=== PATIENT | female | born 1990 | race African-American/Black ===

== ENCOUNTER → 2019-06-09 08:00 | Outpatient (CLI) | payer BC, SELFPAY ==
[2019-06-09 08:21] LABS: Basophils % 0.2 % (0.1-2.0); Eosinophils # 0.1 K/mm3 (0.0-0.4); Eosinophils % 0.9 % (0.1-12.0); Hematocrit 43.1 % (37.0-47.0); Hemoglobin 13.1 g/dL (12.2-16.2); Lymphocytes # 1.9 K/mm3 (0.7-4.5); Lymphocytes % 22.3 % (10-50); Mean Corpuscular HGB Conc 30.4 g/dL (31.8-35.4); Mean Corpuscular Volume 89.1 fl (81-99); Mean Platelet Volume 9.1 fl (7.4-10.4); Monocytes # 0.3 K/mm3 (0.1-1.0); Monocytes % 3.6 % (1.7-9.3); Neutrophils # 6.1 K/mm3 (1.8-7.8); Neutrophils % 72.9 % (37.0-80.0); Platelet Count 270 K/mm3 (142-424); Red Blood Count 4.83 M/mm3 (4.20-5.40); Red Cell Distribution Width 13.1 % (11.5-17.5); White Blood Count 8.4 K/mm3 (4.8-10.8)
[2019-06-09 09:02] LABS: Erythrocyte Sedimentation Rate 9 mm/hr (0-20)
[2019-06-09 09:27] LABS: Alanine Aminotransferase 20 U/L (12-78); Albumin Level 4.1 gm/dL (3.4-5.0); Albumin/Globulin Ratio 1.1 (1.1-1.8); Alkaline Phosphatase 89 U/L (46-116); Anion Gap 14.1 mEq/L (5-15); Aspartate Amino Transferase 10 U/L (15-37); Bilirubin,Total 0.5 mg/dL (0.2-1.0); Blood Urea Nitrogen 11 mg/dL (7-18); Calcium 9.4 mg/dL (8.5-10.1); Carbon Dioxide 27 mmol/L (21.0-32.0); Chloride 102 mmol/L (98-107); Creatinine,Serum 0.73 mg/dL (0.55-1.02); Estimated Glomerular Filt Rate 94 ml/min (>60); GFR (African American) 113 ML/MIN (>60); Globulin 3.7 gm/dl (1.3-3.2); Glucose 92 mg/dL (74-106); Potassium 4.1 mmoL/L (3.5-5.1); Sodium 139 mmol/L (136-145); T4 (Thyroxine) 12.5 ug/dl (4.7-13.3); Thyroid Stimulating Hormone 1.02 uIU/ml (0.358-3.740); Total Protein,Serum 7.8 gm/dL (6.4-8.2)
[2019-06-09 09:31] LABS: C-Reactive Protein < 0.2 mg/dL (0.0-0.9)
[2019-06-10 18:16] LABS: Vitamin B12 512 pg/mL (232-1245)
[2019-06-10 18:17] LABS: Vitamin D 25 Hydroxy 39.3 ng/mL (30.0-100.0)
[2019-06-23 09:18] LABS: Anti-Cardiolipin Antibody IgG <10 GPL (.); Anti-Cardiolipin Antibody IgM <10 MPL (.); Beta-2 Glycoprotein I Ab, IgA <10 SAU (.); Beta-2 Glycoprotein I Ab, IgG <10 SGU (.); Beta-2 Glycoprotein I Ab, IgM <10 SMU (.); Hexagonal Phase Phospholipid 8 sec (.); Thrombin Time 18.5 sec (.)
== END ==
PROVIDERS: Visit Provider Nurse Practitioner Family
DX: R22.30 Localized swelling, mass and lump, unspecified upper limb (principal); R51 Headache; R53.83 Other fatigue
CPT/HCPCS: 36415; 80053; 82607; 82652; 84436; 84443; 85025; 85597; 85598; 85610; 85613; 85651; 85670; 85730; 86140; 86146; 86147

== ENCOUNTER → 2019-08-24 14:49 | Outpatient (CLI) | payer BC, SELFPAY ==
[2019-08-24 15:30] LABS: Erythrocyte Sedimentation Rate 63 mm/hr (0-20)
[2019-08-24 15:32] LABS: Basophils % 0.2 % (0.1-2.0); Eosinophils # 0.2 K/mm3 (0.0-0.4); Eosinophils % 1.5 % (0.1-12.0); Hematocrit 36.3 % (37.0-47.0); Lymphocytes # 2.1 K/mm3 (0.7-4.5); Lymphocytes % 13.5 % (10-50); Mean Corpuscular HGB Conc 30.3 g/dL (31.8-35.4); Mean Corpuscular Hemoglobin 26.8 pg (27.0-31.2); Mean Corpuscular Volume 88.4 fl (81-99); Mean Platelet Volume 9.4 fl (7.4-10.4); Monocytes # 0.7 K/mm3 (0.1-1.0); Monocytes % 4.3 % (1.7-9.3); Neutrophils # 12.3 K/mm3 (1.8-7.8); Neutrophils % 80.5 % (37.0-80.0); Platelet Count 181 K/mm3 (142-424); Red Blood Count 4.11 M/mm3 (4.20-5.40); Red Cell Distribution Width 15.7 % (11.5-17.5); White Blood Count 15.2 K/mm3 (4.8-10.8)
[2019-08-24 15:40] LABS: MANUAL DIFFERENTIAL MANUAL DIFFERENTIAL (MANUAL DIFF)
[2019-08-24 16:20] LABS: Eosinophils % 3 % (0-3); Lymphocytes % 16 % (10-50); Monocytes % 5 % (2-9); Neutrophils % 76 % (42-76); Platelet Estimate Normal; RBC Morphology Normal; Total Cells Counted 100
[2019-08-24 18:54] LABS: Alanine Aminotransferase 24 U/L (12-78); Albumin/Globulin Ratio 1.1 (1.1-1.8); Alkaline Phosphatase 102 U/L (46-116); Anion Gap 16.8 mEq/L (5-15); Aspartate Amino Transferase 16 U/L (15-37); Bilirubin,Total 0.3 mg/dL (0.2-1.0); Blood Urea Nitrogen 12 mg/dL (7-18); Calcium 8.8 mg/dL (8.5-10.1); Carbon Dioxide 25 mmol/L (21.0-32.0); Chloride 102 mmol/L (98-107); Creatinine,Serum 0.76 mg/dL (0.55-1.02); Estimated Glomerular Filt Rate 89 ml/min (>60); GFR (African American) 108 ML/MIN (>60); Globulin 3.6 gm/dl (1.3-3.2); Glucose 78 mg/dL (74-106); Potassium 3.8 mmoL/L (3.5-5.1); Sodium 140 mmol/L (136-145); Total Protein,Serum 7.6 gm/dL (6.4-8.2)
[2019-08-26 09:46] LABS: HIV Screen 4th Generation wRfx Non Reactive (Non Reactive)
[2019-08-26 12:08] LABS: Anti-Centromere B Antibodies <0.2 AI (0.0-0.9); Anti-Jo-1 <0.2 AI (0.0-0.9); Anti-Smith Antibody <0.2 AI (0.0-0.9); Antichromatin Antibodies <0.2 AI (0.0-0.9); Antiscleroderma-70 Antibodies <0.2 AI (0.0-0.9); RNP Antibodies 0.9 AI (0.0-0.9); Sjogren's Anti-SS-A <0.2 AI (0.0-0.9); Sjogren's Anti-SS-B <0.2 AI (0.0-0.9)
[2019-08-26 13:31] LABS: Anti-DNA (DS) Ab Qn 2 IU/mL (0-9)
[2019-08-26 14:50] LABS: Peripheral Smear Review Scanned Result
[2019-08-26 18:13] LABS: EBV Ab VCA, IgM <36.0 U/mL (0.0-35.9)
== END ==
PROVIDERS: Visit Provider Physician Assistant
DX: R53.83 Other fatigue (principal); R59.1 Generalized enlarged lymph nodes; R61 Generalized hyperhidrosis; R63.4 Abnormal weight loss; K12.0 Recurrent oral aphthae; L73.9 Follicular disorder, unspecified
CPT/HCPCS: 80053; 85007; 85025; 85651; 86140; 86225; 86235; 86664; 86665; 86703; G0432

== ENCOUNTER → 2019-08-24 17:50 | Outpatient (CLI) | payer BC, SELFPAY | PROVIDERS: Visit Provider Physician Assistant | DX: R59.1 Generalized enlarged lymph nodes (principal) | CPT/HCPCS: 80053; 86140; 86225; 86235; 86664; 86665; 86703; G0432 ==

== ENCOUNTER → 2019-09-07 10:44 | Outpatient (CLI) | payer BC, SELFPAY ==
[2019-09-07 11:00] LABS: Basophils % 0.2 % (0.1-2.0); Eosinophils # 0.3 K/mm3 (0.0-0.4); Eosinophils % 2.6 % (0.1-12.0); Hematocrit 37.4 % (37.0-47.0); Hemoglobin 11.6 g/dL (12.2-16.2); Lymphocytes # 2.3 K/mm3 (0.7-4.5); Lymphocytes % 22.5 % (10-50); Mean Corpuscular HGB Conc 31.1 g/dL (31.8-35.4); Mean Corpuscular Hemoglobin 26.5 pg (27.0-31.2); Mean Corpuscular Volume 85.2 fl (81-99); Monocytes # 0.5 K/mm3 (0.1-1.0); Neutrophils # 7.1 K/mm3 (1.8-7.8); Neutrophils % 69.8 % (37.0-80.0); Platelet Count 181 K/mm3 (142-424); Red Blood Count 4.39 M/mm3 (4.20-5.40); Red Cell Distribution Width 14.5 % (11.5-17.5); White Blood Count 10.2 K/mm3 (4.8-10.8)
[2019-09-07 12:22] LABS: Ferritin 4 ng/mL (8-388)
[2019-09-07 12:28] LABS: C-Reactive Protein 0.2 mg/dL (0.0-0.9)
[2019-09-07 12:52] LABS: Erythrocyte Sedimentation Rate 19 mm/hr (0-20)
[2019-09-08 08:43] LABS: Iron 37 ug/dL (27-159); UIBC 404 ug/dL (131-425)
[2019-09-08 17:00] LABS: Iron Saturation 8 % (15-55)
== END ==
PROVIDERS: Visit Provider Physician Assistant
DX: D64.9 Anemia, unspecified (principal); R70.0 Elevated erythrocyte sedimentation rate
CPT/HCPCS: 36415; 82728; 83540; 83550; 85025; 85651; 86140

== ENCOUNTER → 2020-04-17 15:37 | Outpatient (CLI) | payer BC, SELFPAY | PROVIDERS: Visit Provider Physician Assistant | DX: N39.0 Urinary tract infection, site not specified (principal) | CPT/HCPCS: 87086; 87088; 87186 ==

== ENCOUNTER → 2020-07-29 16:52 | Outpatient (CLI) | payer BC, SELFPAY | PROVIDERS: Visit Provider Physician Assistant | DX: R82.90 Unspecified abnormal findings in urine (principal); N76.0 Acute vaginitis | CPT/HCPCS: 87086; 87210 ==

== ENCOUNTER 2021-03-07 19:51 | Emergency (ER) | payer BC, SELFPAY ==
[2021-03-07 20:30] VITALS: BP 139/83; PULSE 73; RESP 20; TEMP 36.4; O2SAT 98; BMI 29.2
--- NOTE | 2021-03-07 20:57 | HMH.EDUTC ---
[facility] [place] Disposition Clinical Impression: Viral URI Disposition: Home, Self-Care Condition on Discharge: Good Instructions: DI for Viral Upper Respiratory Infection -- Adult, Guaifenesin Additional Instructions: *Monitor Temp, Over the counter Motrin or Tylenol as directed/as needed Tylenol every 4 hours and Motrin every 6 hours (as long as your family doctor has told you that you can take it) for fever or pain. and straight to ER if unable to lower temp less than 101.0 after medication given *Warm salt water gargles may help to soothe the throat *Throat Lozenges *Warm fluids like tea with honey may help to soothe the throat *Sleep elevated *Humidifier/Vaporizer *Flonase 2 sprays in each nostril daily but be aware that it may take 2-3 days before you notice improvement Your throat swab was sent for culture. Those results are typically sent to your primary care. Be sure to follow up in 2-3 days with your family doctor/primary care physician if no improvement so they can review those result and treat if necessary. If you don?t have a primary care doctor, I recommend you get one but in the mean time, you will have to return to a walk in clinic Follow up IMMEDIATELY for new or worsening symptoms or no Noticeable improvement over the next 48-72 hours. 911 for difficulty breathing or swallowing You were tested for today for COVID19 your test result should be back in the next 24-48 hours, you may call to the [facility] to see if your test results are back in the next 48 hours [phone] [facility] hours are 9am-9pm You was given a handout with instructions for Self Quarantine and Self isolation for while you wait on test results and what to do if they are positive If you are positive the Health Dept will be contacting you also Prescriptions: guaiFENesin [Mucinex 600mg tablet] 1 - 2 tab PO Q12HP PRN #20 tab.er.12h PRN Reason: Congestion Transmission Status: Received by [facility] Fluticasone Propionate [Flonase 50mcg nasal spray 16gm] 1 spr NS DAILY #1 ml Transmission Status: Received by [facility] Referrals: Lizeth Fajardo [Primary Care Provider] - As needed Forms: Work/School Release Time of Disposition: 21:03 Medical Decision Making - Brandon Inquiry Pt receiving controlled substance: No Brandon was queried for this patient: No Vital Signs: 03/07/21 20:30 Temperature 97.6 F Temperature Source Oral Pulse Rate [Right Brachial] 73 Respiratory Rate 20 Blood Pressure [Right Arm] 139/83 Blood Pressure Mean [Right Arm] 101 Blood Pressure Source [Right Arm] Automatic Cuff Blood Pressure Position [Right Arm] Sitting 02 Sat by Pulse Oximetry 98 Oxygen Delivery Method Room Air Orders (Tests/Meds): ORDERS Category Date Time Status Covid-19 Nasal PCR ([facility]) Routine Lab 03/07/21 20:45 Received [facility] [place] HPI - General Stated complaint: covid test Time Seen by Provider: 03/07/21 20:57 Mode of Arrival: Ambulatory Source of Information: Patient Limitations: No Limitations Description of Symptoms (Recalled from Triage Doc. by RN): PATIENT C/O CONGESTION X 3 DAYS AND SORE THROAT SINCE THIS MORNING HEENT Symptoms (Recalled from RN notes): Yes Resp Symptoms (Recalled from RN notes): No Skin Symptoms (Recalled from RN notes): No MS Symptoms (Recalled from RN notes): No Functional Status (Recalled from RN notes): WNL - History of Present Illness Provider Complaint: Patient states that she hasnt felt well in about 3 days States that she has been having sore throat, nasal congestion and headache State that she was worried that she may have strep throat or sinus infection and due to symptoms wanted to get tested for COVID to be safe - Related Data Previous Rx's Medication Instructions Recorded fluconazole 150 mg tablet 150 mg PO .QOD 6 Days #3 tab 07/29/20 hydrochlorothiazide 12.5 mg tablet See Rx Instructions .ROUTE 10/17/20 .COMPLEX #30 tab Fluticasone Propionate [Flonase 1 spr NS DAILY #1 ml 03/07/21 50mcg
[2021-03-07 21:20] VITALS: BP 139/83; PULSE 73; RESP 20; TEMP 36.4; O2SAT 98
[2021-03-07 21:57] LABS: UTC Strep Screen (Rapid) Negative (Negative)
[2021-03-07 21:58] LABS: UTC Pregnancy Test, Urine Negative (Negative)
== END 2021-03-07 21:24 | disposition home or self-care (01) ==
PROVIDERS: Emergency Provider Nurse Practitioner; PCP Family Medicine
DX: J06.9 Acute upper respiratory infection, unspecified (principal); Z20.822 Contact with and (suspected) exposure to COVID-19
CPT/HCPCS: 81025; 87880; 99203; G0463; U0003

== ENCOUNTER 2022-10-27 17:08 | Emergency (ER) | payer SELFPAY ==
[2022-10-27 17:20] VITALS: BP 169/82; PULSE 114; RESP 20; TEMP 38; O2SAT 100; BMI 29.2
[2022-10-27 17:52] LABS: UTC Strep Screen (Rapid) Positive (Negative)
[2022-10-27 18:07] VITALS: BP 169/82; PULSE 114; RESP 20; TEMP 38; O2SAT 100
--- NOTE | 2022-10-27 18:10 | EXP.UTC ---
Discharge Plan Disposition Patient Disposition: Home, Self-Care Condition: Good Prescriptions Prescriptions: New penicillin V potassium 500 mg tablet 500 mg PO BID Qty: 20 0RF ondansetron 4 mg tablet,disintegrating 4 mg PO Q8H PRN (Reason: nausea and vomiting) Qty: 10 0RF No Action fluticasone propionate 120 SPR/BOT spray,suspension 1 spr NS DAILY Rx Instructions: each nostril daily Referrals Follow up/Referrals: Lizeth Fajardo [Primary Care Provider] - See instructions Activity Restrictions/Add. Instructions Additional Instructions/Restrictions: *Monitor Temp, Over the counter Motrin or Tylenol as directed/as needed Tylenol every 4 hours and Motrin every 6 hours (as long as your family doctor has told you that you can take it) for fever or pain. and straight to ER if unable to lower temp less than 101.0 after medication given *Warm salt water gargles may help to soothe the throat *Throat Lozenges? *Warm fluids like tea with honey may help to soothe the throat? *Sleep elevated *Humidifier/Vaporizer *If you did not take Penicillin shot or was unable to, start taking antibiotic immediately and make sure that you take it for the FULL length of time although you should start to feel better in 24-48 hours *change toothbrush and toothpaste 24-48 hours after starting to take antibiotics so you do not reinfect yourself Monitor Temp. Tylenol and/or Ibuprofen as needed. ER if fever is no less than 101 despite alternating Tylenol and Ibuprofen * Encourage fluids, water, Gatorade, powerade, pedialyte if infant/toddler/or child *Cold fluids, popsicles and ice cream may feel good on his throat Follow up IMMEDIATELY for new or worsening symptoms or no Noticeable improvement over the next 48-72 hours. 911 for difficulty breathing or swallowing Clinical Impressions Clinical Impression: Strep throat Stand Alone Forms Stand Alone Forms: Work/School Release Instructions Patient Instructions: Strep Throat, DI for Strep Throat, DI for Fever (Symptom) -- Adult Discharge ED Provider: Sondra Pringle [facility] [place] General Stated complaint: Sore throat,ARREOLA Ears Mode of Arrival: Ambulatory Source of Information: Patient Limitations: No Limitations Time Seen by Provider: 10/27/22 18:10 Description of Symptoms (Recalled from Triage Doc. by RN): sore throat, ARREOLA, bilateral ear pain. Hx vertigo took medication at 1230 HEENT Symptoms (Recalled from RN notes): Yes Resp Symptoms (Recalled from RN notes): No Skin Symptoms (Recalled from RN notes): No MS Symptoms (Recalled from RN notes): No Functional Status (Recalled from RN notes): N/A History of Present Illness Provider Complaint: Patient states that she has been having sore throat, fever, chills, headache and bilateral ear pain/pressure States that she has hx of vertigo and takes meclizine and took some at 1230 States that this evening she was feeling achy and her throat was hurting worse so she came in Related Data Home Medications Medication Instructions Recorded Confirmed fluticasone propionate 50 1 spr NS DAILY ALLERGIES 10/27/22 10/27/22 mcg/actuation nasal spray,suspension Previous Rx's Medication Instructions Recorded ondansetron 4 mg disintegrating 4 mg PO Q8H PRN nausea and 10/27/22 tablet vomiting #10 tabs penicillin V potassium 500 mg 500 mg PO BID #20 tabs 10/27/22 tablet Allergies Allergy/AdvReac Type Severity Reaction Status Date / Time No Known Allergies Allergy Verified 10/27/22 17:50 Worker's Comp Is this a Worker's Comp case?: No PFSH [facility] Disclaimer: The information contained in this section may have been updated after the patient was seen, as this information can be updated by other users. Social History Smoking Status: Never smoker alcohol intake: never substance use type: denies use current occupational status: employed Tra
[2022-10-27 18:38] LABS: UTC Influenza A Antigen Negative (Negative)
[2022-10-27 18:39] LABS: UTC Influenza B Antigen Negative (Negative)
== END 2022-10-27 18:48 | disposition home or self-care (01) ==
PROVIDERS: Emergency Provider Nurse Practitioner; PCP Family Medicine
DX: J02.0 Streptococcal pharyngitis (principal); R51.9 Headache, unspecified; H92.03 Otalgia, bilateral; R50.9 Fever, unspecified
CPT/HCPCS: 87804; 87880; 99212; 99214; G0463